=== PATIENT | male | born 1960 | race Caucasian/White ===

== ENCOUNTER 2019-02-19 20:33 | Emergency (ER) | payer OTHER ==
[~2019-02-19] VITALS: Ht 172.7 cm; Wt 82.6 kg
[2019-02-19] MEDS ORDERED: STEGLATRO5 MG (20:46)
[2019-02-19] MEDS ORDERED: ALLOPURINOL 10100 M1 (20:47)
[2019-02-19] MEDS ORDERED: TACROLIMUS1 MG PO ×2 (20:47→20:49)
[2019-02-19] MEDS ORDERED: LANTUS (20:47)
[2019-02-19] MEDS ORDERED: ASPIRIN81 M2 (20:48)
[2019-02-19] MEDS ORDERED: PROGRAF1 MG (20:48)
[2019-02-19] MEDS ORDERED: LIPITOR 20 MG T20 M1 (20:48)
[2019-02-19] MEDS ORDERED: COZAAR100 MG (20:49)
[2019-02-19 22:04] LABS: ABSOLUTE EOSINOPHILS 0.1 thou/uL (0.0-0.7); ABSOLUTE LYMPHOCYTES 1.7 thou/uL (0.8-5.3); ABSOLUTE MONOCYTES 0.4 thou/uL (0.0-1.2); ABSOLUTE NEUTROPHILS 2.7 thou/uL (1.6-8.1); BASOPHILS 0.4 %; EOSINOPHILS 2.2 %; HEMATOCRIT 40.8 % (42.0-52.0); HEMOGLOBIN 14.1 gm/dL (14.0-18.0); MCH 30.6 pg (26.0-34.0); MCHC 34.7 g/dL (28.0-37.0); MCV 88.4 fL (80.0-100.0); MONOCYTES 7.7 %; MPV 8.6 fl. (7.2-11.1); NUCLEATED RBCS 0 /100WBC; PLATELET COUNT* 186 thou/uL (150-400); POLYS 54.7 %; RBC 4.62 mil/uL (4.50-6.00); RDW-CV 14.7 % (10.5-14.5)
[2019-02-19 22:09] LABS: ANION GAP 10 mmol/L (7-16); BUN 28 mg/dL (7-18); CALCIUM 8.7 mg/dL (8.5-10.1); CHLORIDE 105 mmol/L (98-107); CO2 24 mmol/L (21-32); CREATININE 1.6 mg/dL (0.6-1.3); GLUCOSE 178 mg/dL (70-99); POTASSIUM 4.1 mmol/L (3.5-5.1); SODIUM 139 mmol/L (136-145)
[2019-02-19 22:13] LABS: ALCOHOL 194 mg/dL (<10); SALICYLATE < 2.8 mg/dL (2.8-20.0)
[2019-02-19 22:15] LABS: URINE BILIRUBIN NEGATIVE (Negative); URINE BLOOD NEGATIVE (Negative); URINE CLARITY CLEAR; URINE COLOR YELLOW; URINE GLUCOSE-RANDOM 3+ (Negative); URINE KETONES NEGATIVE (Negative); URINE LEUKOCYTES-REFLEX NEGATIVE (Negative); URINE NITRITE-REFLEX NEGATIVE (Negative); URINE PROTEIN NEGATIVE (Negative); URINE UROBILINOGEN 0.2 E.U./dl (0.2-1.0)
[2019-02-19 22:15] LABS: ACETAMINOPHEN < 2 ug/mL (10-30)
[2019-02-19 22:18] LABS: ALBUMIN 3.7 g/dL (3.4-5.0); ALKALINE PHOSPHATASE 100 U/L (46-116); LIPASE 184 U/L (73-393); SGOT 34 U/L (15-37); SGPT 63 U/L (30-65); TOTAL PROTEIN 7.7 g/dL (6.4-8.2); TROPONIN-I LEVEL <0.06 ng/mL (<0.06)
[2019-02-19 22:24] LABS: AMP/METHAMP Negative (Negative); BARBITURATES Negative (Negative); BENZODIAZEPINES Negative (Negative); COCAINE Negative (Negative); METHADONE Negative (Negative); OPIATES Negative (Negative); PCP Negative (Negative); THC Negative (Negative)
[2019-02-19] MEDS ORDERED: ONDANSETRON HCL4 M2 PO (23:01)
[2019-02-19 23:44] VITALS: BP 110/59
--- NOTE | 2019-02-20 10:31 | EKG ---
[place] [address] ELECTROCARDIOGRAM REPORT Name: EMILI ECHEVERRIA Room: [facility]#: [id number] Admission: 02/19/19 Attend Phys: Discharge: 02/19/19 Date of : 64 Report #: [id number] THIS REPORT FOR: //name// [facility] ED Test Date: 2019-02-19 Test Time: 22:12:03 Pat Name: EMILI ECHEVERRIA Department: Room: Gender: M Outbound Sales Representative: ANIL : 1960 Requested By: Lora Amaya Order Number: [id number] MD: Aamir Garcia Measurements Intervals [place] Rate: 65 P: 57 ME: 191 QRS: 23 QRSD: 101 T: 24 QT: 430 QTc: 448 Interpretive Statements Sinus rhythm No previous ECG available for comparison Electronically Signed On 02-20-2019 10:31:46 CDT by Aamir Garcia [email or web address] <ELECTRONICALLY SIGNED> By: Aamir Garcia MD, [facility] 02/20/19 1031 2212 2212 Aamir Garcia MD, FACC /EPI
== END 2019-02-19 23:44 | disposition home or self-care (01) ==
LOC: M.ERS 20:33
PROVIDERS: Nurse Practitioner Family
DX: F10.129 Alcohol abuse with intoxication, unspecified (principal); R11.2 Nausea with vomiting, unspecified; E86.0 Dehydration; E11.9 Type 2 diabetes mellitus without complications; I10 Essential (primary) hypertension; E78.00 Pure hypercholesterolemia, unspecified; Z79.4 Long term (current) use of insulin; Y90.0 Blood alcohol level of less than 20 mg/100 ml